=== PATIENT | female | born 1940 | race Caucasian/White ===

== ENCOUNTER 2017-06-01 11:33 | Observation (INO) | payer MEDICARE, OTHER ==
[~2017-06-01] VITALS: Ht 149.9 cm; Wt 66.1 kg
--- NOTE | ~2017-06-01 | DS ---
Discharge Summary [address] [address] [address] [place]. [address] NAME: ELISA HASSAN : 42 STATUS : DIS Calderon PAT#: [id number] AGE: 76 ADM/REG DATE : 06/01/17 MR#: [id number] REPORT SERV DATE: 06/04/17 DICTATED BY: EDUARDO KABA DATE: 06/04/17 REPORT STATUS : Draft TRANSCRIBED BY: MODL DATE: 06/04/17 ADMISSION DATE: 06/01/2017 DISCHARGE DATE: 06/04/2017 DISCHARGE DIAGNOSES: 1. Worsening abdominal pain, post biopsy. 2. Acute diverticulitis. 3. Breast cancer, status post lumpectomy. 4. New diagnosis of lymphoma. 5. Hyperlipidemia. 6. Anxiety and depression. CONSULTANTS DURING THIS HOSPITALIZATION: Dr. Real Hackett of Oncology, Dr. Mondragon of General Surgery. INVASIVE PROCEDURES DONE DURING THIS HOSPITALIZATION: None. BRIEF HISTORY OF PRESENT ILLNESS: The patient is a 76-year-old female, presented with worsening pain after 24 hours on having a transabdominal retroperitoneal node biopsy, so she was admitted. For detailed history and physical exam, please see my note dictated on 06/01/2017. HOSPITAL COURSE: After being admitted to the hospital. Initially, the thought was that she could have acute diverticulitis versus perforation of the bowel. I asked General Surgery to see the patient. We started her on broad-spectrum antibiotics. We continued to monitor her. Her CT scan showed mild early diverticulitis in the sigmoid colon, but otherwise was unremarkable. She continued to do well with the antibiotics. We advanced her diet. Surgery saw the patient, did not wreck think that this was an acute abdomen and Oncology said that they will follow up patient in the outpatient setting once biopsy reports are available. She feels well at this time, is tolerating a diet, and is ready to be discharged. DISCHARGE DISPOSITION: Home. DISCHARGE ACTIVITY: As tolerated. DISCHARGE DIET: GI soft diet. DISCHARGE MEDICATIONS: Aspirin 81 mg once daily, Aricept 10 mg p.o. once at bedtime, losartan 100 mg p.o. once daily, Prilosec 40 mg once daily, Zoloft 50 mg once daily, Restoril 15 mg p.o. once at bedtime, Maxzide 37.5/25 mg p.o. daily, Levaquin 750 mg p.o. once daily for four days, and Flagyl 500 mg p.o. three times daily for four days. More than 30 minutes spent planning this patient's discharge, reconciling medications, writing prescriptions, discussing hospital care, and followup with the patient and documenting this discharge. Discharge Summary [address] [place] [place] [address] NAME: ELISA HASSAN : 42 STATUS : DIS Calderon PAT#: [id number] AGE: 76 ADM/REG DATE : 06/01/17 MR#: [id number] REPORT SERV DATE: 06/04/17 DICTATED BY: EDUARDO KABA DATE: 06/04/17 REPORT STATUS : Draft TRANSCRIBED BY: EDILSON DATE: 06/04/17 SAULO/EDILSON Eduardo Kaba M.D. / [id number] CC: Tash Blanco M.D. Davey B. Daniel, M.D.
--- NOTE | ~2017-06-01 | HP ---
History And Physical [place] [id number] [facility] [place]. [address] NAME: ELISA HASSAN : 42 STATUS : ADM Calderon PAT#: [id number] AGE: 76 ADM/REG DATE : 06/01/17 MR#: [id number] REPORT SERV DATE: 06/01/17 DICTATED BY: EDUARDO KABA DATE: 06/01/17 REPORT STATUS : Draft TRANSCRIBED BY: MODEvens DATE: 06/01/17 DATE OF ADMISSION: 06/01/2017 CHIEF COMPLAINT: Abdominal pain. BRIEF HISTORY OF PRESENT ILLNESS: The patient is a 76-year-old white female who apparently had a lymph node biopsy done yesterday in Interventional Radiology. She said she was doing fairly well. She has had some chronic abdominal pain from what is attributed to this enlarged lymph node, and her back pain that has not changed but then last night she became significantly worse as far as her pain goes and then this morning when she tried to drink her coffee, she had an episode of vomiting. She has had persistent nausea since then, and her pain has escalated. Prior to this onset of symptoms, she said that if she had a bowel movement or she would urinate, the pain would get better, but this is different and has persisted. She has also had some chills, and she feels hot at times. She has not measured her temperature. When she came to the emergency room, the CT scan of the abdomen showed some mild diverticulitis, but there was no evidence of any perforation on the CT scan, and she was referred to the Hospitalist Service for further treatment and evaluation. REVIEW OF SYSTEMS: A 10-point review of systems is otherwise negative. PAST MEDICAL HISTORY: Significant for breast cancer, status post lumpectomy and radiation therapy, followed by Dr. Benedict Hackett. She has hyperlipidemia. She suffers from hypertension, probably memory loss as well as anxiety and depression. PAST SURGICAL HISTORY: Significant for cholecystectomy, hysterectomy, knee replacement, and recent lymph node biopsy. ALLERGIES: TO SULFA. HOME MEDICATIONS: Include aspirin 81 mg once daily, Aricept 10 mg once at bedtime, Cozaar 100 mg once daily, Prilosec 40 mg once daily, Zoloft 50 mg once daily, Restoril 15 mg p.o. once at bedtime, Maxzide 37.5/25 mg one tablet daily. SOCIAL HISTORY: She denies use of alcohol, tobacco, or illicit substances. Lives at home, self-sufficient in all ADLs. FAMILY HISTORY: Mother with dementia and otherwise no significant history of cancer in the family except one sister who has breast cancer. PHYSICAL EXAMINATION: GENERAL: White female, lying on a gurney, appears to be in no obvious respiratory distress. She is awake, alert. She is oriented, somewhat forgetful at times. VITAL SIGNS: Blood pressure was 137/99 upon arrival to the emergency room. Temp is 98.7, pulse is 78, saturation of 94% on room air. HEENT: Head is normocephalic, atraumatic. Pupils are equal, round, and reactive to light. History And Physical [address] [address] NAME: ELISA HASSAN : 42 STATUS : ADM Calderon PAT#: [id number] AGE: 76 ADM/REG DATE : 06/01/17 MR#: [id number] REPORT SERV DATE: 06/01/17 DICTATED BY: EDUARDO KABA. DATE: 06/01/17 REPORT STATUS : Draft TRANSCRIBED BY: EDILSON DATE: 06/01/17 Extraocular muscles are intact. Sclerae anicteric. Conjunctivae are normal. Oropharynx without lesion. Tongue protrusion midline. Uvula midline. NECK: Supple. No jugular venous distention. No carotid bruits or thyromegaly is appreciated. No lymphadenopathy in the neck is palpable. HEART: Mild tachycardia. No murmurs, rubs, or gallops. PMI nondisplaced. LUNGS: Clear to auscultation both anteriorly and posteriorly without rales, rhonchi, wheezing, or consolidation. ABDOMEN: She is diffusely tender. Guarding mainly on both lower quadrants. No rebound. Bowel sounds are active and present. EXTREMITIES: Without cyanosis, clubbing, or edema. NEUROLOGICAL: Seems to be grossly intact. LABORATORY DATA: White count is 6.9, hemoglobin of 15.1, hematocrit 44.6, platelet count is 134. Sodium is 136, potassium 3.7, chloride 101, bicarb 28, BUN 12, creatinine 0.58, glucose of 170. Urinalysis fairly unremarkable. Lipase 67. CT of the abdomen and pelvis shows mild early diverticulitis in the sigmoid colon but otherwise unremarkable. IMPRESSION: 1. Abdominal pain, status post lymph node biopsy. The differential diagnosis includes early diverticulitis versus perforation of the bowel. 2. Hypertension. 3. Dementia. PLAN: The patient will be admitted. IV fluids will be given. We will check a lactate level. We will give IV antibiotics. We will obtain a General Surgery consultation to ensure that no urgent surgical needs are present. Home medications have been personally reviewed and addressed by me. The patient remains a full code. SV/MODL Eduardo Kaba M.D. / [id number] CC: Tash Blanco M.D. Davey B. Daniel, M.D.
[~2017-06-01 11:33] MED LIST: ACET500CAP PO; ASAB PO; B12250T PO; BIOTIN5 MG OR; BRILINTA90 MG PO; CALTRA600D PO; CELEXA20 PO; CENTRUM PO; COQ10100 MG OR; CRESTOR40 MG PO; FLAXSEED OIL1000 MG PO; HYZAAR 100/25 T1 TAB PO; LEVOTHYROXINE PO; LISINOPRIL PO; LOVASTATIN PO; OS500+D PO; PROLIA60 MG/1 ML SC; SYN075 PO; TAMOXIFEN20 M1 PO; TYLENOL PM PO; VITAMIN D1000 UNI1 PO; VITC500 PO; ZITH250 PO; [UNRECOGNIZED DRUG - OTHER] PO
[2017-06-01 12:04] LABS: BASOPHILS 0.1 %; BASOPHILS ABSOLUTE 0.01 10/3/uL (0.0-0.16); EOSINOPHILS 0 %; ER CBC TAT 0 Hrs 03 Mins; HEMATOCRIT 44.6 % (36.0-48.0); HEMOGLOBIN 15.1 g/dL (12.0-16.0); IMMATURE GRANULOCYTES 0.4 %; IMMATURE GRANULOCYTES ABSOLUTE 0.03 10/3/uL (0.0-0.11); LYMPHOCYTES 22.1 %; LYMPHOCYTES ABSOLUTE 1.52 10/3/uL (0.67-4.30); MANUAL DIFF NO %; MEAN CORPUS HGB CONC 33.9 g/dL (32.0-36.0); MEAN CORPUSCULAR HEMOGLOB 31.4 pg (26.0-34.0); MEAN CORPUSCULAR VOLUME 92.7 fL (80-100); MEAN PLATELET VOLUME 10.8 fL (9.2-13.0); MONOCYTES 2.8 %; MONOCYTES ABSOLUTE 0.19 10/3/uL (0.21-1.20); NEUTROPHILS 74.6 %; NEUTROPHILS ABSOLUTE 5.12 10/3/uL (2.02-8.40); PLATELET COUNT 134 10/3/uL (150-400); RBC DISTRIBUTION WIDTH 13.4 % (12.0-16.0); RED CELL COUNT 4.81 10/6/uL (4.0-5.6); WHITE BLOOD CELLS 6.9 10/3/uL (4.5-10.5)
[2017-06-01 12:11] LABS: WBC (NOT ORDERED) (RFLEX) 0 (0-5)
[2017-06-01 12:22] LABS: A/G RATIO 1.1 (0.7-1.9); ALBUMIN 3.9 G/DL (3.5-5.0); ALKALINE PHOSPHATASE 112 U/L (45-117); BUN (BLOOD UREA NITROGEN) 12 MG/DL (6-23); CALCIUM, SERUM 9.4 MG/DL (8.5-10.4); CHLORIDE, SERUM 101 MMOL/L (96-112); CO2 (CARBON DIOXIDE) 28 MMOL/L (24-34); CREATININE 0.58 MG/DL (0.55-1.02); GFR AFRICAN AMERICAN 105 ML/MIN (>=60); GFR NON AFRICAN AMERICAN 90 ML/MIN (>=60); GLOBULIN 3.7 G/DL (2.5-4.1); GLUCOSE, SERUM 170 MG/DL (60-99); POTASSIUM, SERUM 3.7 MMOL/L (3.5-5.3); SGOT(AST) 15 U/L (5-40); SGPT(ALT) 18 U/L (5-65); SODIUM, SERUM 136 MMOL/L (135-148); TOTAL BILIRUBIN 0.4 MG/DL (0-1.2); TOTAL PROTEIN 7.6 G/DL (6.0-8.5)
[2017-06-01 12:36] LABS: ASCORBIC ACID (UR NOT ORDER) NEG (NEG); BILIRUBIN, URINE NEGATIVE (NEG); ER URINALYSIS TAT 0 Hrs 25 Mins; KETONE, URINE 20 MG/DL (NEG); LEUKOCYTE ESTERASE(NOT OR NEG (NEG); NITRITE (URINE) NEG (NEG)
[2017-06-01] MEDS ORDERED: ARICEPT10 PO (16:06)
[2017-06-01] MEDS ORDERED: ZOL50 PO (16:06)
[2017-06-01] MEDS ORDERED: HALF81 PO (16:06)
[2017-06-01] MEDS ORDERED: REST15 PO (16:06)
[2017-06-01] MEDS ORDERED: MAX25 PO (16:07)
[2017-06-01] MEDS ORDERED: PRILOSEC40 MG PO (16:07)
[2017-06-01] MEDS ORDERED: COZAAR100 MG PO (16:07)
[2017-06-02 12:06] LABS: BASOPHILS 0 %; EOSINOPHILS 0 %; HEMATOCRIT 41.6 % (36.0-48.0); HEMOGLOBIN 14.2 g/dL (12.0-16.0); IMMATURE GRANULOCYTES 0.2 %; IMMATURE GRANULOCYTES ABSOLUTE 0.03 10/3/uL (0.0-0.11); LYMPHOCYTES 14.7 %; LYMPHOCYTES ABSOLUTE 1.82 10/3/uL (0.67-4.30); MEAN CORPUS HGB CONC 34.1 g/dL (32.0-36.0); MEAN CORPUSCULAR HEMOGLOB 31.3 pg (26.0-34.0); MEAN CORPUSCULAR VOLUME 91.6 fL (80-100); MEAN PLATELET VOLUME 10.3 fL (9.2-13.0); MONOCYTES 7.6 %; MONOCYTES ABSOLUTE 0.94 10/3/uL (0.21-1.20); NEUTROPHILS 77.5 %; NEUTROPHILS ABSOLUTE 9.56 10/3/uL (2.02-8.40); PLATELET COUNT 110 10/3/uL (150-400); RED CELL COUNT 4.54 10/6/uL (4.0-5.6)
[2017-06-02 12:07] LABS: MANUAL DIFF NO %; WHITE BLOOD CELLS 12.4 10/3/uL (4.5-10.5)
[2017-06-02 12:30] LABS: ALBUMIN 3.2 G/DL (3.5-5.0); BUN (BLOOD UREA NITROGEN) 13 MG/DL (6-23); CALCIUM, SERUM 8.9 MG/DL (8.5-10.4); CHLORIDE, SERUM 101 MMOL/L (96-112); CO2 (CARBON DIOXIDE) 25 MMOL/L (24-34); CREATININE 0.46 MG/DL (0.55-1.02); GFR AFRICAN AMERICAN 113 ML/MIN (>=60); GFR NON AFRICAN AMERICAN 97 ML/MIN (>=60); GLUCOSE, SERUM 126 MG/DL (60-99); PHOSPHORUS, SERUM 1.8 MG/DL (2.5-4.5); POTASSIUM, SERUM 3.2 MMOL/L (3.5-5.3); SODIUM, SERUM 136 MMOL/L (135-148)
[2017-06-03 06:22] LABS: BASOPHILS 0 %; EOSINOPHILS 0 %; HEMATOCRIT 39.4 % (36.0-48.0); IMMATURE GRANULOCYTES 0.3 %; IMMATURE GRANULOCYTES ABSOLUTE 0.03 10/3/uL (0.0-0.11); LYMPHOCYTES 19.1 %; LYMPHOCYTES ABSOLUTE 1.79 10/3/uL (0.67-4.30); MEAN CORPUSCULAR HEMOGLOB 30.9 pg (26.0-34.0); MEAN CORPUSCULAR VOLUME 93.6 fL (80-100); MEAN PLATELET VOLUME 11.1 fL (9.2-13.0); MONOCYTES 9.4 %; MONOCYTES ABSOLUTE 0.88 10/3/uL (0.21-1.20); NEUTROPHILS 71.2 %; NEUTROPHILS ABSOLUTE 6.65 10/3/uL (2.02-8.40); PLATELET COUNT 100 10/3/uL (150-400); RBC DISTRIBUTION WIDTH 14.5 % (12.0-16.0); RED CELL COUNT 4.21 10/6/uL (4.0-5.6); WHITE BLOOD CELLS 9.4 10/3/uL (4.5-10.5)
[2017-06-03 06:25] LABS: MANUAL DIFF NO %
[2017-06-03 06:30] LABS: BUN (BLOOD UREA NITROGEN) 11 MG/DL (6-23); CALCIUM, SERUM 8.4 MG/DL (8.5-10.4); CHLORIDE, SERUM 106 MMOL/L (96-112); CO2 (CARBON DIOXIDE) 27 MMOL/L (24-34); GFR AFRICAN AMERICAN 110 ML/MIN (>=60); GFR NON AFRICAN AMERICAN 95 ML/MIN (>=60); GLUCOSE, SERUM 117 MG/DL (60-99); POTASSIUM, SERUM 3.3 MMOL/L (3.5-5.3); SODIUM, SERUM 140 MMOL/L (135-148)
[2017-06-04 06:27] LABS: BASOPHILS 0.1 %; BASOPHILS ABSOLUTE 0.01 10/3/uL (0.0-0.16); EOSINOPHILS 0.1 %; EOSINOPHILS ABSOLUTE 0.01 10/3/uL (0.0-0.53); HEMATOCRIT 38.1 % (36.0-48.0); HEMOGLOBIN 12.4 g/dL (12.0-16.0); LYMPHOCYTES ABSOLUTE 1.76 10/3/uL (0.67-4.30); MEAN CORPUS HGB CONC 32.5 g/dL (32.0-36.0); MEAN CORPUSCULAR HEMOGLOB 30.7 pg (26.0-34.0); MEAN CORPUSCULAR VOLUME 94.3 fL (80-100); MONOCYTES 8.6 %; MONOCYTES ABSOLUTE 0.58 10/3/uL (0.21-1.20); NEUTROPHILS 65.2 %; PLATELET COUNT 99 10/3/uL (150-400); RBC DISTRIBUTION WIDTH 14.2 % (12.0-16.0); RED CELL COUNT 4.04 10/6/uL (4.0-5.6); WHITE BLOOD CELLS 6.8 10/3/uL (4.5-10.5)
[2017-06-04 06:29] LABS: MANUAL DIFF NO %
[2017-06-04 06:41] LABS: BETA 2 MICROGLOBULIN 1.8 MG/L (1.09-2.53)
[2017-06-04] MEDS ORDERED: LEVAQUIN750 MG PO (11:08)
[2017-06-04] MEDS ORDERED: FLAG500TAB PO (11:09)
[2017-06-05 10:40] LABS: HEPATITIS B SURFACE ANTIGEN NON-REACTIVE (NON-REACT)
[2017-06-05 10:50] LABS: HEPATITIS C ANTIBODY NON-REACTIVE (NON-REACT)
[2017-06-05 10:51] LABS: HEPATITIS B CORE AB IGM NON-REACTIVE (NON-REAC)
[2017-06-05 10:52] LABS: HEP A ANTIBODY IGM NON-REACTIVE (NON-REACT)
== END 2017-06-04 14:35 | disposition home or self-care (01) ==
LOC: ER 11:33 → 4EA 16:27
PROVIDERS: Emergency Medicine; Internal Medicine; Internal Medicine Hematology & Oncology; Nurse Practitioner Adult Health
DX: R10.9 Unspecified abdominal pain (principal); I10 Essential (primary) hypertension; C50.412 Malignant neoplasm of upper-outer quadrant of left female breast; E78.5 Hyperlipidemia, unspecified; I80.9 Phlebitis and thrombophlebitis of unspecified site; R59.0 Localized enlarged lymph nodes; F03.90 Unspecified dementia, unspecified severity, without behavioral disturbance, psychotic disturbance, mood disturbance, and anxiety; K57.92 Diverticulitis of intestine, part unspecified, without perforation or abscess without bleeding; F41.9 Anxiety disorder, unspecified; F32.9 Major depressive disorder, single episode, unspecified; Z88.2 Allergy status to sulfonamides; Z91.040 Latex allergy status; Z17.0 Estrogen receptor positive status [ER+]; Z87.891 Personal history of nicotine dependence; Z90.49 Acquired absence of other specified parts of digestive tract; Z90.710 Acquired absence of both cervix and uterus; Z79.899 Other long term (current) drug therapy; Z23 Encounter for immunization
CPT/HCPCS: 74020; 74176; 80048; 80053; 80069; 80074; 81001; 82232; 83605; 83615; 83690; 84132; 84145; 85025; 87040; 90662; 96374; 96375; 99285; A9270-GY; G0008; J0360; J1170; J1956; J2405; J2550